=== PATIENT | female | born 1950 | race Caucasian/White ===

== ENCOUNTER 2022-01-08 11:12 | Observation (INO) | payer MEDICARE, OTHER ==
[2022-01-08 12:18] VITALS: BMI 26.5
[2022-01-08] MEDS ORDERED: Acetaminophen 325 MG TAB PO PRN (13:56)
[2022-01-08] MEDS ORDERED: Bisacodyl 5 MG TAB PO PRN (13:56)
[2022-01-08] MEDS ORDERED: Senokot S 8.6-50 MG TAB PO PRN (13:56)
[2022-01-08] MEDS ORDERED: Ondansetron ODT 4 MG TAB PO PRN (13:56)
[2022-01-08] MEDS ORDERED: Ondansetron PF 4 MG/2 ML Vial IVP PRN (13:56)
[2022-01-08] MEDS ORDERED: HumaLOG 300 UNITS/3 ML VIAL SC PRN ×2 (16:33)
[2022-01-08] MEDS ORDERED: Dextrose 50% Abboject 50 ML SYRINGE SLOW IVP PRN (16:33)
[2022-01-08] MEDS ORDERED: Dextrose 5% in Water 1,000 ML IV PRN (16:33)
[2022-01-08] MEDS: Diltiazem 125 MG in Sodium Chloride 0.9% 100 ML IVPB SCH (16:55)
[2022-01-08] MEDS: Glimepiride 4 MG TAB PO SCH (16:55)
[2022-01-08] MEDS: metFORMIN 500 MG TAB PO SCH (16:55)
[2022-01-08 17:16] LABS: Troponin I Less than 0.010 ng/mL (< 0.028)
[2022-01-08] MEDS ORDERED: Colchicine 0.6 MG TAB PO PRN (22:14)
[2022-01-09] MEDS: Diltiazem 125 MG in Sodium Chloride 0.9% 100 ML IVPB SCH (04:13)
[2022-01-09 05:18] LABS: #Eosinphils 0.1 10x3/uL (0.0-0.5); #Monocytes 0.7 10x3/uL (0.0-1.1); #Neutrophils 3.9 10x3/uL (1.5-8.4); %Basophils 0.6 % (0.0-2.0); %Eosinophils 2.2 % (0.0-6.0); %Lymphocytes 26.2 % (18.0-47.0); %Monocytes 10.3 % (0.0-10.0); %Neutrophils 60.5 % (40.0-75.0); Hemoglobin 11.4 g/dL (12.0-15.5); Mean Corpuscular HGB CONC 32.5 g/dL (32.0-36.0); Mean Platelet Volume 11.1 fl (7.4-10.4); Platelet Count 215 10x3/uL (150-450); RBC Distribution Width 15.6 % (11.5-14.5); Red Blood Cell (RBC) Count 4.56 10x6/uL (3.90-5.03); White Blood Cell (WBC) Count 6.4 10x3/uL (3.5-10.5)
[2022-01-09 05:25] LABS: ALT (SGPT) 10 U/L (8-55); AST (SGOT) 14 U/L (5-34); Albumin 3.9 g/dL (3.4-4.8); Alkaline Phosphatase 71 U/L (40-110); Anion Gap 13 mmol/L (10-20); BUN (Urea Nitrogen) 13 mg/dL (9.8-20.1); Bilirubin, Total 0.6 mg/dL (0.2-1.2); Calc. Creatinine Clearance 63 mL/min (70-130); Calcium 9.4 mg/dL (7.8-10.44); Carbon Dioxide 28 mmol/L (23-31); Chloride 100 mmol/L (98-107); Globulin 2.2 g/dL (2.4-3.5); Glucose 117 mg/dL (83-110); Potassium 3.2 mmol/L (3.5-5.1); Protein, Total 6.1 g/dL (5.8-8.1); Sodium 138 mmol/L (136-145)
[2022-01-09] MEDS: Furosemide 20 MG/2 ML VIAL SLOW IVP SCH ×2 (06:36→14:51)
[2022-01-09] MEDS: Glimepiride 4 MG TAB PO SCH (08:45)
[2022-01-09] MEDS: metFORMIN 500 MG TAB PO SCH (08:45)
[2022-01-09] MEDS ORDERED: Multivit, Therapeutic 1 TAB PO SCH (09:00)
[2022-01-09] MEDS ORDERED: Atorvastatin Calcium 40 MG TAB PO SCH (09:00)
[2022-01-09] MEDS ORDERED: Amlodipine 10 MG TAB PO SCH (09:00)
[2022-01-09] MEDS ORDERED: Valsartan 80 MG TAB PO SCH (09:00)
[2022-01-09] MEDS ORDERED: FERROUS FUMARATE 325 MG PO SCH (09:00)
[2022-01-09] MEDS ORDERED: Hydrochlorothiazide 25 MG TAB PO SCH (09:00)
[2022-01-09] MEDS ORDERED: Aspirin 81 mg Enteric Coated Tablet PO SCH (09:00)
[2022-01-09] MEDS ORDERED: Alogliptin 25 MG TAB PO SCH (09:00)
[2022-01-09] MEDS ORDERED: Potassium Chloride 20 MEQ TAB PO SCH (14:45)
[2022-01-09 16:14] VITALS: BP 129/68; TEMP 96.4
== END 2022-01-09 17:30 | disposition home or self-care (01) ==
LOC: CSHTELE 11:12
PROVIDERS: ADMIT Hospitalist; ATTEND Hospitalist
DX: I48.91 Unspecified atrial fibrillation (principal); I10 Essential (primary) hypertension; E87.6 Hypokalemia; E11.9 Type 2 diabetes mellitus without complications; K21.9 Gastro-esophageal reflux disease without esophagitis; D50.9 Iron deficiency anemia, unspecified; E78.5 Hyperlipidemia, unspecified; I08.1 Rheumatic disorders of both mitral and tricuspid valves; Z79.82 Long term (current) use of aspirin; Z79.84 Long term (current) use of oral hypoglycemic drugs; Z79.899 Other long term (current) drug therapy; Z88.8 Allergy status to other drugs, medicaments and biological substances; Z91.041 Radiographic dye allergy status
CPT/HCPCS: 36415; 36416; 80053; 85025; 93306; 96374; 96375; 96376; G0378; J1940; J3490

== ENCOUNTER 2022-01-31 12:01 | Outpatient (CLI) | payer OTHER | END 2022-01-31 12:02 | disposition home or self-care (01) | LOC: CSHLAB 12:01 | PROVIDERS: ATTEND Specialist | DX: Z01.818 Encounter for other preprocedural examination (principal); Z20.822 Contact with and (suspected) exposure to COVID-19; I48.91 Unspecified atrial fibrillation | CPT/HCPCS: 87811; 93005; 93010 ==

== ENCOUNTER 2022-02-04 06:32 | Day surgery (SDC) | payer OTHER ==
[2022-02-04 08:03] VITALS: BP 121/75; TEMP 97.7
[2022-02-04] MEDS ORDERED: PROPOFOL 20 ML ONE (08:26)
== END 2022-02-04 09:18 | disposition home or self-care (01) ==
LOC: CSHSDC 06:32
PROVIDERS: ATTEND Specialist
PROC: 5A2204Z Restoration of Cardiac Rhythm, Single (ICD-10-PCS; principal; 2022-02-04)
PROC: 4A02XFZ Measurement of Cardiac Rhythm, External Approach (ICD-10-PCS; 2022-02-04)
DX: I48.0 Paroxysmal atrial fibrillation (principal); I42.8 Other cardiomyopathies; I10 Essential (primary) hypertension; E78.2 Mixed hyperlipidemia; I49.1 Atrial premature depolarization; E11.9 Type 2 diabetes mellitus without complications; K21.9 Gastro-esophageal reflux disease without esophagitis; R00.2 Palpitations; D64.9 Anemia, unspecified; Z79.82 Long term (current) use of aspirin; Z79.01 Long term (current) use of anticoagulants; Z79.84 Long term (current) use of oral hypoglycemic drugs; Z79.899 Other long term (current) drug therapy; Z20.822 Contact with and (suspected) exposure to COVID-19; Z98.890 Other specified postprocedural states
CPT/HCPCS: 36416; 92960; 93005; 93010; J2704

== ENCOUNTER 2024-05-03 09:49 | Outpatient (CLI) | payer OTHER | END 2024-05-03 09:50 | disposition home or self-care (01) | LOC: CSHULT 09:49 | PROVIDERS: ATTEND Family Medicine | DX: R10.13 Epigastric pain (principal); K76.0 Fatty (change of) liver, not elsewhere classified | CPT/HCPCS: 76705 ==